=== PATIENT | male | born 1980 | race Caucasian/White ===

== ENCOUNTER 2020-06-02 22:10 | Emergency (ER) | payer OTHER ==
[~2020-06-02] VITALS: Ht 182.9 cm; Wt 113.4 kg
[2020-06-03] MEDS ORDERED: HYDROCODON-ACE1 EAC8 PO (01:28)
[2020-06-03 01:43] VITALS: BP 146/95
== END 2020-06-03 01:43 | disposition home or self-care (01) ==
LOC: M.ERS 22:10
DX: S93.491A Sprain of other ligament of right ankle, initial encounter (principal); J45.909 Unspecified asthma, uncomplicated; W18.39XA Other fall on same level, initial encounter; Y93.89 Activity, other specified; Y92.096 Garden or yard of other non-institutional residence as the place of occurrence of the external cause; Y99.8 Other external cause status

== ENCOUNTER 2020-06-04 21:07 | Emergency (ER) | payer OTHER ==
[~2020-06-04] VITALS: Ht 182.9 cm; Wt 113.4 kg
[~2020-06-04 21:07] MED LIST: HYDROCODON-ACE1 EAC8 PO
[2020-06-04 21:18] VITALS: BP 136/100
== END 2020-06-04 21:33 | disposition home or self-care (01) ==
LOC: M.ERS 21:07
DX: S93.491A Sprain of other ligament of right ankle, initial encounter (principal); X58.XXXA Exposure to other specified factors, initial encounter; Y93.89 Activity, other specified; Y92.89 Other specified places as the place of occurrence of the external cause; Y99.8 Other external cause status